=== PATIENT | female | born 1985 | race Caucasian/White ===

== ENCOUNTER → 2019-03-08 | Outpatient (CLI) | payer BC | LOC: COL.RAD 10:28 | DX: H91.91 Unspecified hearing loss, right ear (principal); M47.812 Spondylosis without myelopathy or radiculopathy, cervical region ==

== ENCOUNTER → 2019-03-23 | Outpatient (CLI) | payer BC | LOC: COL.RAD 08:52 | DX: H91.91 Unspecified hearing loss, right ear (principal) | CPT/HCPCS: A9585 ==